=== PATIENT | female | born 2000 | race African-American/Black ===

== ENCOUNTER 2019-10-10 13:20 | Emergency (ER) | payer MEDICAID ==
[~2019-10-10] VITALS: Ht 162.6 cm; Wt 103.8 kg
[2019-10-10 13:27] VITALS: BP 114/67
== END 2019-10-10 15:06 ==
LOC: ED 14:50
DX: M25.531 Pain in right wrist (principal)
CPT/HCPCS: 99283

== ENCOUNTER 2020-02-14 03:37 | Day surgery (SDC) | payer MEDICAID ==
[~2020-02-14] VITALS: Ht 162.6 cm; Wt 97.7 kg
[2020-02-14] MEDS ORDERED: ONDANSETRON 2MG/ML, 2ML ONE ×2 (03:49→09:54)
[2020-02-14] MEDS ORDERED: MORPHINE SULFATE 4 MG/ML, 1ML IVPush PRN (04:00)
[2020-02-14] MEDS ORDERED: SODIUM CHLORIDE FLUSH 10ML SYR IVF ONE (04:00)
[2020-02-14] MEDS ORDERED: ONDANSETRON 2MG/ML, 2ML IVPush ONE (04:00)
[2020-02-14 04:18] LABS: BASOPHILS # (AUTO) 0.02 x10^3/uL (0-0.3); BASOPHILS % (AUTO) 0 % (0-1); EOSINOPHILS # (AUTO) 0.12 x10^3/uL (0-0.8); EOSINOPHILS % (AUTO) 1 % (1-7); LYMPHOCYTES # (AUTO) 2.08 x10^3/uL (1-6.1); LYMPHOCYTES % (AUTO) 23 % (22-44); MD NO; MEAN CORPUSCULAR HGB CONC 33.1 g/dL (32.4-35.8); MEAN CORPUSCULAR VOLUME 81.7 fL (80-100); MEAN PLATELET VOLUME 8.1 fL (7.4-10.4); MONOCYTES # (AUTO) 0.45 x10^3/uL (0-1.4); MONOCYTES % (AUTO) 5 % (2-9); NEUTROPHILS # (AUTO) 6.52 x10^3/uL (1.8-8.0); NEUTROPHILS % (AUTO) 71 % (42-75); PLATELET COUNT 230 x10^3/uL (130-400); RED BLOOD COUNT 4.94 x10^6/uL (3.82-5.3); RED CELL DISTRIBUTION WIDTH 14.2 % (9.6-15.2)
[2020-02-14] MEDS ORDERED: PLEASE ENTER HEIGHT AND WEIGHT MC SCH (04:30)
[2020-02-14 04:31] LABS: ALBUMIN 3.8 g/dL (3.4-5.0); ANION GAP 6 mmol/L (5-15); CALCIUM 8.9 mg/dL (8.5-10.1); CHLORIDE 110 mmol/L (98-107)
[2020-02-14 04:37] LABS: ALANINE AMINOTRANSFERASE 16 U/L (12-78); ALKALINE PHOSPHATASE 57 U/L (45-117); CREATININE 0.86 mg/dL (0.55-1.02); TOTAL PROTEIN 7.2 g/dL (6.4-8.2)
[2020-02-14] MEDS ORDERED: SODIUM CHLORIDE 0.9% 1,000ML IVBOLUS ONE (05:30)
--- NOTE | 2020-02-14 06:23 | NUR ---
GEN SURG PAGED.
[2020-02-14] MEDS ORDERED: PIPERACILLIN/TAZO/PMX 3.375GM 50 ML ONE (06:24)
[2020-02-14] MEDS ORDERED: PIPERACILLIN/TAZO/PMX 3.375GM 50 ML IV ONE (06:30)
[2020-02-14] MEDS ORDERED: OMNIPAQUE 350 MG/ML, 100ML BOTTLE ONE (07:00)
--- NOTE | 2020-02-14 07:11 | NUR ---
BEDSIDE REPORT FROM TELLO RN, PT REQUESTING TO GO TO BATHROOM, PT GIVEN CUP AND AMBULATED TO BATHROOM WITH STEADY GAIT. PT TO BE ADMITTED, AWAITNG TO GIVE REPORT TO FLOOR RN WHO DENIED REPORT FROM PREVIOUS RN RN GETTING AM SHIFT REPORT.
--- NOTE | 2020-02-14 07:27 | NUR ---
REPORT TO STEPHEN HARTLEY
[2020-02-14] MEDS ORDERED: BUPIVACAINE/PF-EPI 0.5% 1:200K ONE (08:40)
[2020-02-14] MEDS ORDERED: EPINEPHRINE 1 MG/ML, 1ML ONE (08:40)
[2020-02-14] MEDS ORDERED: BUPIVACAINE/PF 0.5% ONE (08:40)
[2020-02-14] MEDS ORDERED: BUPIVACAINE/PF 0.25% ONE (08:40)
[2020-02-14] MEDS ORDERED: FENTANYL PF 100 MCG/2ML ONE ×2 (08:57→10:38)
[2020-02-14] MEDS ORDERED: PROPOFOL 10 MG/ML, 20ML ONE (09:54)
[2020-02-14] MEDS ORDERED: ROCURONIUM 10MG/ML,5ML ONE (09:54)
[2020-02-14] MEDS ORDERED: NEOSTIGMINE 1 MG/ML, 10ML ONE (09:54)
[2020-02-14] MEDS ORDERED: KETOROLAC 30 MG/1 ML ONE (09:54)
[2020-02-14] MEDS ORDERED: DEXAMETHASONE 4 MG/ML, 1ML ONE (09:54)
[2020-02-14] MEDS ORDERED: GLYCOPYRROLATE 0.2MG/1ML, 5ML ONE (09:54)
[2020-02-14] MEDS ORDERED: SUCCINYLCHOLINE 20 MG/ML, 10ML ONE (09:54)
[2020-02-14] MEDS ORDERED: ALBUTEROL/IPRATROPIUM 2.5MG/0.5MG, 3 ML NPPB PRN (10:30)
[2020-02-14] MEDS ORDERED: ACETAMINOPHEN 325 MG TABLET PO PRN ×2 (10:30→12:30)
[2020-02-14] MEDS ORDERED: MIDAZOLAM 1 MG/ML, 2ML IV PRN (10:30)
[2020-02-14] MEDS ORDERED: PROMETHAZINE 25 MG/ML, 1ML IV PRN (10:30)
[2020-02-14] MEDS ORDERED: MEPERIDINE/PF 25MG/ML,1ML IVPush PRN (10:30)
[2020-02-14] MEDS ORDERED: METOPROLOL 1 MG/ML, 5ML IV PRN (10:30)
[2020-02-14] MEDS ORDERED: hydrALAzine 20 MG/ML, 1ML IV PRN (10:30)
[2020-02-14] MEDS ORDERED: HYDROmorphone 2 MG/ML, 1ML IVPush PRN (10:30)
[2020-02-14] MEDS ORDERED: OXYcodone 5 MG/5 ML ORAL.SOL UDC PO PRN ×2 (10:30→12:30)
[2020-02-14] MEDS ORDERED: HYDROmorphone 1 MG/ML, 1ML INJ ONE (10:38)
[2020-02-14] MEDS ORDERED: MIDAZOLAM 1 MG/ML, 2ML ONE (10:38)
[2020-02-14] MEDS ORDERED: PROMETHAZINE 25 MG/ML, 1ML ONE (10:38)
[2020-02-14] MEDS: FENTANYL PF 100 MCG/2ML IV PRN ×2 (10:44→11:30)
[2020-02-14] MEDS ORDERED: LACTATED RINGERS 1,000 ML IV SCH (12:30)
[2020-02-14] MEDS ORDERED: HYDROmorphone 2 MG/ML, 1ML IV PRN (12:30)
[2020-02-14] MEDS ORDERED: ONDANSETRON 2MG/ML, 2ML IVPush PRN (12:30)
[2020-02-14 12:47] VITALS: BP 91/51
[2020-02-14 13:00] VITALS: BP 133/93
[2020-02-14] MEDS ORDERED: IBUPROFEN 600 MG TABLET PO PRN (13:00)
[2020-02-14 13:35] LABS: MICROSCOPIC AUTO
[2020-02-14] MEDS ORDERED: OXYC5CAP2 PO (14:59)
== END 2020-02-14 16:04 | disposition home or self-care (01) ==
LOC: ED 06:55 → 4NE 08:08 → ED 08:56 → UNDOADMIN 08:56 → 4NE 08:56 → SDC 08:56 → UNDODISIN 16:04 → EDSTATUS 23:09
PROVIDERS: ATTEND Emergency Medicine
DX: K35.30 Acute appendicitis with localized peritonitis, without perforation or gangrene (principal); K66.0 Peritoneal adhesions (postprocedural) (postinfection); E66.9 Obesity, unspecified; Z79.891 Long term (current) use of opiate analgesic; Z79.899 Other long term (current) drug therapy
CPT/HCPCS: 36415; 44970; 74177; 80053; 81001; 83690; 84703; 85025; 87086; 88304; 96374; 99285; J0330; J1100; J1885; J2250; J2405; J2543; J2550; J2704; J2710; J3010; Q9967; G0378; J0171; J3490

== ENCOUNTER 2020-06-16 09:48 | Emergency (ER) | payer MEDICAID, OTHER ==
[~2020-06-16] VITALS: Ht 160 cm; Wt 104.3 kg
[~2020-06-16 09:48] MED LIST: OXYC5CAP2 PO
--- NOTE | 2020-06-16 10:28 | NUR ---
pt presents to ED with c/o right lower abd pain that has been present since appendectomy 02/14/20, pt also notes cough "for a couple of months." pt is a&o, repss even and unlabored, pt able to speak in full sentences without difficulty. pt up to bathroom to void at this time, instructions given for clean catch ua.
[2020-06-16 10:29] LABS: BASOPHILS # (AUTO) 0.02 x10^3/uL (0-0.3); BASOPHILS % (AUTO) 0 % (0-1); EOSINOPHILS # (AUTO) 0.06 x10^3/uL (0-0.8); EOSINOPHILS % (AUTO) 1 % (1-7); LYMPHOCYTES # (AUTO) 2.45 x10^3/uL (1-6.1); LYMPHOCYTES % (AUTO) 31 % (22-44); MD NO; MEAN CORPUSCULAR HEMOGLOBIN 26.4 pg (27.0-34.8); MEAN CORPUSCULAR HGB CONC 31.7 g/dL (32.4-35.8); MEAN CORPUSCULAR VOLUME 83.3 fL (80-100); MEAN PLATELET VOLUME 7.3 fL (7.4-10.4); MONOCYTES # (AUTO) 0.41 x10^3/uL (0-1.4); MONOCYTES % (AUTO) 5 % (2-9); NEUTROPHILS % (AUTO) 63 % (42-75); PLATELET COUNT 265 x10^3/uL (130-400); RED BLOOD COUNT 4.72 x10^6/uL (3.82-5.3); RED CELL DISTRIBUTION WIDTH 14.2 % (9.6-15.2)
--- NOTE | 2020-06-16 10:39 | NUR ---
URINE COLLECTED AND SENT TO LAB.
[2020-06-16 10:40] LABS: ALBUMIN 3.8 g/dL (3.4-5.0); ANION GAP 4 mmol/L (5-15); CALCIUM 9.2 mg/dL (8.5-10.1); CHLORIDE 108 mmol/L (98-107)
[2020-06-16 10:47] LABS: HCG UR SG 1.032 (1.003-1.030); MICROSCOPIC NOT IND
[2020-06-16 10:57] LABS: CREATININE 0.94 mg/dL (0.55-1.02)
[2020-06-16 11:55] VITALS: BP 97/49
--- NOTE | 2020-06-16 12:19 | NUR ---
RICHARD SMYTH NOTIFED LIVER PANEL IS NOT RESULTED YET, PER MD PT IS TO BE DC'D AT THIS TIME WITH FOLLOW UP IF LABWORK IS ABNORMAL. PT GIVEN DC INSTRUCTIONS, AMBULATORY TO DC DESK WITH STEADY GAIT, ALL QUESTIONS ANSWERED.
[2020-06-16 12:32] LABS: ALANINE AMINOTRANSFERASE 20 U/L (12-78); ALKALINE PHOSPHATASE 56 U/L (45-117); BILIRUBIN,TOTAL 0.2 mg/dL (0.2-1.0); TOTAL PROTEIN 7.2 g/dL (6.4-8.2)
== END 2020-06-16 12:20 | disposition home or self-care (01) ==
LOC: ED 10:40
DX: G89.29 Other chronic pain (principal); R10.84 Generalized abdominal pain; R11.0 Nausea; Z90.89 Acquired absence of other organs
CPT/HCPCS: 36415; 80053; 81003; 81025; 85025; 99283

== ENCOUNTER 2020-10-07 13:52 | Emergency (ER) | payer MEDICAID ==
[~2020-10-07] VITALS: Ht 160 cm; Wt 99.0 kg
[2020-10-07 13:59] VITALS: BP 122/81
--- NOTE | 2020-10-07 14:43 | NUR ---
PT TO RM FROM [facility] AT THIS TIME. PLACED ON BP, CONT PULSE OX.
[2020-10-07 14:44] LABS: ALBUMIN 4.1 g/dL (3.4-5.0); ANION GAP 4 mmol/L (5-15); BASOPHILS % (AUTO) 1 % (0-1); CALCIUM 9.1 mg/dL (8.5-10.1); CHLORIDE 108 mmol/L (98-107); EOSINOPHILS % (AUTO) 1 % (1-7); LYMPHOCYTES % (AUTO) 42 % (22-44); MEAN CORPUSCULAR HEMOGLOBIN 26.7 pg (27.0-34.8); MEAN CORPUSCULAR HGB CONC 32.3 g/dL (32.4-35.8); MEAN PLATELET VOLUME 7.4 fL (7.4-10.4); MONOCYTES % (AUTO) 10 % (2-9); NEUTROPHILS % (AUTO) 46 % (42-75); PLATELET COUNT 248 x10^3/uL (130-400); RED BLOOD COUNT 4.74 x10^6/uL (3.82-5.3); RED CELL DISTRIBUTION WIDTH 14.3 % (9.6-15.2)
[2020-10-07 14:49] LABS: MD NO
== END 2020-10-07 15:52 | disposition home or self-care (01) ==
LOC: ED 15:31
DX: U07.1 COVID-19 (principal); R06.02 Shortness of breath; B34.9 Viral infection, unspecified; R94.31 Abnormal electrocardiogram [ECG] [EKG]; Z90.89 Acquired absence of other organs
CPT/HCPCS: 36415; 71045; 80048; 82040; 84703; 85025; 87635; 93005; 99285

== ENCOUNTER 2020-10-21 11:11 | Emergency (ER) | payer MEDICAID ==
[~2020-10-21] VITALS: Ht 160 cm; Wt 98.2 kg
--- NOTE | 2020-10-21 12:17 | NUR ---
PLATING INSPECTOR NOTE: PT TO ROOM 2 FROM [facility]
--- NOTE | 2020-10-21 12:22 | NUR ---
PT REQUESTING FOLLOW UP COVID SWAB AND TEST. PT C/O N/V X 1 WEEK. PT ALSO HAS A LOST OF SMELL, FATIGUE, NASAL PAIN, AND HEADACHE. PT TESTED COVID POSITIVE 10/07/2020 AT [facility].
[2020-10-21 12:30] VITALS: BP 106/46
[2020-10-21 12:47] LABS: HCG UR SG 1.034 (1.003-1.030)
--- NOTE | 2020-10-21 13:44 | NUR ---
PT REC'VD DISCHARGE INSTRUCTIONS AND EDUCATION. PT HAD NO FURTHER QUESTIONS. PT AMBULATED TO DC AREA, STEADY GAIT.
== END 2020-10-21 13:50 | disposition home or self-care (01) ==
LOC: ED 11:59
DX: R11.2 Nausea with vomiting, unspecified (principal); R43.0 Anosmia; Z20.828 Contact with and (suspected) exposure to other viral communicable diseases; Z90.89 Acquired absence of other organs
CPT/HCPCS: 81025; 87635; 99283

== ENCOUNTER 2020-10-29 03:28 | Emergency (ER) | payer MEDICAID ==
[~2020-10-29] VITALS: Ht 160 cm; Wt 100.3 kg
--- NOTE | 2020-10-29 03:45 | NUR ---
STATES ABDOMINAL PAIN SINCE BEFORE THANKSGIVING, STATES TAKING 5 TESTS WITH ONLY 1 POSITIVE TEST. STATES NO PAIN OR NAUSEA AT THIS MOMENT
[2020-10-29 04:25] VITALS: BP 114/69
[2020-10-29 04:29] LABS: HCG UR SG 1.009 (1.003-1.030); MICROSCOPIC NOT IND
== END 2020-10-29 04:49 | disposition home or self-care (01) ==
LOC: ED 04:00
DX: R10.13 Epigastric pain (principal); R10.9 Unspecified abdominal pain; Z90.89 Acquired absence of other organs
CPT/HCPCS: 81003; 81025; 99283

== ENCOUNTER 2020-10-30 12:36 | Emergency (ER) | payer MEDICAID ==
[~2020-10-30] VITALS: Ht 162.6 cm; Wt 97.7 kg
[2020-10-30] MEDS ORDERED: ONDANSETRON ODT 8 MG ONE (13:16)
--- NOTE | 2020-10-30 13:20 | NUR ---
MEDICATED PER ORDERS. INSTRUCTED ON CLEAN CATCH URINE SAMPLE.
--- NOTE | 2020-10-30 13:22 | NUR ---
SAME TRIAGE NOTE. PT REPORTS SHE HAS TAKEN MULTIPLE TESTS, "SOME HAVE BEEN POSITIVE AND SOME HAVE BEEN NEGATIVE." LMP 10/09/20.
[2020-10-30] MEDS ORDERED: ONDANSETRON ODT 8 MG PO ONE (13:30)
--- NOTE | 2020-10-30 13:41 | NUR ---
PT TOLERATED WATER. JUICE AND CRACKERS PROVIDED. TO US VIA [employer] AT THIS TIME.
[2020-10-30 13:57] LABS: BASOPHILS % (AUTO) 1 % (0-1); EOSINOPHILS % (AUTO) 1 % (1-7); LYMPHOCYTES % (AUTO) 26 % (22-44); MEAN CORPUSCULAR HEMOGLOBIN 26.8 pg (27.0-34.8); MEAN CORPUSCULAR HGB CONC 32.7 g/dL (32.4-35.8); MEAN PLATELET VOLUME 7.5 fL (7.4-10.4); MONOCYTES % (AUTO) 5 % (2-9); NEUTROPHILS % (AUTO) 68 % (42-75); PLATELET COUNT 246 x10^3/uL (130-400); RED BLOOD COUNT 4.86 x10^6/uL (3.82-5.3)
[2020-10-30 14:05] LABS: MD NO
[2020-10-30 14:08] LABS: ALANINE AMINOTRANSFERASE 14 U/L (12-78); ALBUMIN 3.9 g/dL (3.4-5.0); ANION GAP 7 mmol/L (5-15); CALCIUM 9.4 mg/dL (8.5-10.1); CHLORIDE 109 mmol/L (98-107); CREATININE 0.92 mg/dL (0.55-1.02)
[2020-10-30 14:13] LABS: ALKALINE PHOSPHATASE 59 U/L (45-117); BILIRUBIN,TOTAL 0.6 mg/dL (0.2-1.0); TOTAL PROTEIN 7.8 g/dL (6.4-8.2)
[2020-10-30 14:13] LABS: MICROSCOPIC INDICATED
[2020-10-30 14:55] VITALS: BP 104/71
--- NOTE | 2020-10-30 14:56 | NUR ---
BREAK RN: BECKY ENRIQUEZ HAS UPDATED PATIENT. PATIENT UNDERSTANDS DISCHARGE INSTRUCTIONS. PT READY FOR DC.
== END 2020-10-30 14:58 | disposition home or self-care (01) ==
LOC: ED 13:11
DX: R10.2 Pelvic and perineal pain (principal); R11.2 Nausea with vomiting, unspecified; Z90.89 Acquired absence of other organs
CPT/HCPCS: 36415; 76830; 80053; 81001; 83690; 84703; 85025; 87086; 99284; Q0162

== ENCOUNTER 2020-12-07 06:54 | Emergency (ER) | payer MEDICAID ==
[~2020-12-07] VITALS: Ht 162.6 cm; Wt 99.1 kg
[2020-12-07 07:05] VITALS: BP 113/70
--- NOTE | 2020-12-07 07:11 | NUR ---
[facility], assume care at this time.
--- NOTE | 2020-12-07 07:20 | NUR ---
Pt reports that she needs a covid teast for work because a coworker tested positive. Reports having a dry cough. Pt reports having RLQ starting in september that has been evaluated by here pcp with no DX.
--- NOTE | 2020-12-07 07:31 | NUR ---
Nelson MARLOW in room for evaluation
--- NOTE | 2020-12-07 07:59 | NUR ---
Walked UA and covid swab to lab, xray in room
[2020-12-07 08:09] LABS: MICROSCOPIC AUTO
[2020-12-07 08:17] LABS: BASOPHILS % (AUTO) 1 % (0-1); EOSINOPHILS % (AUTO) 1 % (1-7); LYMPHOCYTES % (AUTO) 31 % (22-44); MEAN CORPUSCULAR HEMOGLOBIN 26.7 pg (27.0-34.8); MEAN CORPUSCULAR HGB CONC 32.6 g/dL (32.4-35.8); MEAN PLATELET VOLUME 6.9 fL (7.4-10.4); MONOCYTES % (AUTO) 6 % (2-9); NEUTROPHILS % (AUTO) 61 % (42-75); PLATELET COUNT 298 x10^3/uL (130-400); RED BLOOD COUNT 4.77 x10^6/uL (3.82-5.3); RED CELL DISTRIBUTION WIDTH 14.2 % (9.6-15.2)
[2020-12-07 08:19] LABS: MD NO
[2020-12-07 08:25] LABS: ALANINE AMINOTRANSFERASE 17 U/L (12-78); ALBUMIN 3.8 g/dL (3.4-5.0); ANION GAP 4 mmol/L (5-15); CALCIUM 8.9 mg/dL (8.5-10.1); CHLORIDE 111 mmol/L (98-107); CREATININE 0.78 mg/dL (0.55-1.02)
[2020-12-07 08:30] LABS: ALKALINE PHOSPHATASE 53 U/L (45-117); BILIRUBIN,TOTAL 0.5 mg/dL (0.2-1.0); TOTAL PROTEIN 7.2 g/dL (6.4-8.2)
== END 2020-12-07 09:11 | disposition home or self-care (01) ==
LOC: ED 09:00
DX: J02.8 Acute pharyngitis due to other specified organisms (principal); Z20.822 Contact with and (suspected) exposure to COVID-19; B97.89 Other viral agents as the cause of diseases classified elsewhere; R10.31 Right lower quadrant pain
CPT/HCPCS: 71045; 80053; 81001; 84703; 85025; 87077; 87081; 87086; 87635; 87880; 99284

== ENCOUNTER 2021-03-04 18:20 | Emergency (ER) | payer MEDICAID, OTHER ==
[~2021-03-04] VITALS: Ht 162.6 cm; Wt 100.0 kg
[2021-03-04 18:38] VITALS: BP 111/81
[2021-03-04] MEDS ORDERED: DEXAMETHASONE 4 MG TABLET PO ONE (19:00)
[2021-03-04] MEDS ORDERED: DEXAMETHASONE 4 MG TABLET ONE (19:02)
[2021-03-04] MEDS ORDERED: IBUPROFEN 600 MG TABLET ONE (19:12)
[2021-03-04] MEDS ORDERED: IBUPROFEN 200 MG TABLET PO ONE (19:30)
[2021-03-04] MEDS ORDERED: IBUPROFEN 600 MG TABLET PO ONE (19:30)
== END 2021-03-04 19:20 | disposition home or self-care (01) ==
LOC: ED 19:15
DX: J02.0 Streptococcal pharyngitis (principal); M79.10 Myalgia, unspecified site; Z90.89 Acquired absence of other organs
CPT/HCPCS: 99283

== ENCOUNTER 2021-04-13 20:18 | Emergency (ER) | payer MEDICAID ==
[~2021-04-13] VITALS: Ht 162.6 cm; Wt 98.3 kg
[2021-04-13 21:02] LABS: BASOPHILS % (AUTO) 1 % (0-1); EOSINOPHILS % (AUTO) 1 % (1-7); LYMPHOCYTES % (AUTO) 26 % (22-44); MEAN CORPUSCULAR HEMOGLOBIN 26.3 pg (27.0-34.8); MEAN CORPUSCULAR HGB CONC 32.4 g/dL (32.4-35.8); MEAN PLATELET VOLUME 6.8 fL (7.4-10.4); MONOCYTES % (AUTO) 6 % (2-9); NEUTROPHILS % (AUTO) 67 % (42-75); PLATELET COUNT 343 x10^3/uL (130-400); RED BLOOD COUNT 4.91 x10^6/uL (3.82-5.3); RED CELL DISTRIBUTION WIDTH 14.3 % (9.6-15.2)
[2021-04-13 21:06] LABS: MD NO
[2021-04-13 21:15] LABS: ALANINE AMINOTRANSFERASE 23 U/L (12-78); ALBUMIN 3.7 g/dL (3.4-5.0); ANION GAP 6 mmol/L (5-15); CALCIUM 8.4 mg/dL (8.5-10.1); CHLORIDE 109 mmol/L (98-107); CREATININE 0.83 mg/dL (0.55-1.02)
[2021-04-13 21:19] LABS: ALKALINE PHOSPHATASE 62 U/L (45-117); BILIRUBIN,TOTAL 0.4 mg/dL (0.2-1.0); TOTAL PROTEIN 7.5 g/dL (6.4-8.2)
--- NOTE | 2021-04-13 22:57 | NUR ---
PT. TO ROOM FROM LOBBY AT THIS TIME.
[2021-04-13 23:14] LABS: MICROSCOPIC NOT IND
[2021-04-13 23:28] VITALS: BP 92/55
== END 2021-04-13 23:58 | disposition home or self-care (01) ==
LOC: ED 23:03
DX: K29.00 Acute gastritis without bleeding (principal); Z90.89 Acquired absence of other organs
CPT/HCPCS: 36415; 74021; 80053; 81003; 84703; 85025; 99284

== ENCOUNTER 2021-05-04 01:04 | Emergency (ER) | payer SELFPAY ==
[~2021-05-04] VITALS: Ht 162.6 cm; Wt 113.5 kg
--- NOTE | 2021-05-04 01:27 | NUR ---
REPORT TO CARO HARTLEY
[2021-05-04] MEDS ORDERED: ACETAMINOPHEN 325 MG TABLET PO ONE (01:30)
[2021-05-04] MEDS ORDERED: ACETAMINOPHEN 325 MG TABLET ONE (01:31)
[2021-05-04 01:43] VITALS: BP 125/70
--- NOTE | 2021-05-04 01:44 | NUR ---
PT AMBULATED STEADY TO RESTROOM. PT ADMTS TO MARIJUANA USE PRIOR TO COMING IN. PT DROWSY
== END 2021-05-04 02:20 | disposition home or self-care (01) ==
LOC: ED 01:34
DX: T78.1XXA Other adverse food reactions, not elsewhere classified, initial encounter (principal); F12.10 Cannabis abuse, uncomplicated; R94.31 Abnormal electrocardiogram [ECG] [EKG]; X58.XXXA Exposure to other specified factors, initial encounter
CPT/HCPCS: 93005; 99283; J7512